=== PATIENT | female | born 1965 | race Caucasian/White ===

== ENCOUNTER 2017-12-20 00:42 | Emergency (ER) | payer OTHER ==
[2017-12-20] MEDS: LEVALBUTEROL (NEB) 1.25 MG/0.5 ML AMP HHN (04:13)
== END 2017-12-20 05:44 | disposition home or self-care (01) ==
LOC: E/R 00:42
DX: B34.9 Viral infection, unspecified (principal)
CPT/HCPCS: 71045; 94664; 99283-25